=== PATIENT | female | born 1965 | race Caucasian/White ===

== ENCOUNTER 2019-10-31 11:27 | Inpatient (IN) | payer BC, OTHER ==
[~2019-10-31 11:27] MED LIST: Iopamidol 370 76% 100 ML VIAL ONE; Magnevist 469MG/ML 20 ML VIAL ONE
[2019-10-31 12:15] LABS: #Lymphocytes 1.5 thou/uL (1.20-3.40); #Monocytes 0.4 thou/uL (0.11-0.59); %Basophils 0.1 % (0.0-1.0); %Eosinophils 0.3 % (0.0-10.0); %Lymphocytes 12.8 % (21.0-51.0); %Monocytes 3.6 % (0.0-10.0); %Neutrophils 83.2 % (42.0-75.0); Hemoglobin 13.3 g/dL (12.0-16.0); Mean Corpuscular HGB CONC 32.8 g/dL (32.0-36.0); Mean Corpuscular Hemoglobin 34.6 pg (27.0-31.0); Mean Platelet Volume 9.4 fL (7.4-10.4); Platelet Count 216 thou/uL (130-400); RBC Distribution Width 14.3 % (11.5-14.5); Red Blood Cell (RBC) Count 3.83 mill/uL (4.20-5.40)
[2019-10-31 12:20] LABS: PTT 26.7 sec (22.9-36.1); Prothrombin Time 12.9 sec (12.0-14.7)
[2019-10-31 12:36] LABS: ALT (SGPT) 31 U/L (8-55); AST (SGOT) 32 U/L (5-34); Albumin 3.9 g/dL (3.5-5.0); Alkaline Phosphatase 79 U/L (40-110); Anion Gap 17 mmol/L (10-20); BUN (Urea Nitrogen) 18 mg/dL (9.8-20.1); Bilirubin, Total 0.4 mg/dL (0.2-1.2); Calc. Creatinine Clearance 0 mL/min (70-130); Calcium 9.4 mg/dL (7.8-10.44); Carbon Dioxide 21 mmol/L (22-29); Chloride 105 mmol/L (98-107); Estimated GFR-MDRD 75; Globulin 3.1 g/dL (2.4-3.5); Glucose 122 mg/dL (70-105); Potassium 3.2 mmol/L (3.5-5.1); Sodium 140 mmol/L (136-145)
--- NOTE | 2019-10-31 13:00 | CT ---
BRAIN CT WITHOUT IV CONTRAST: HISTORY: Stroke alert, right-sided facial droop, slurred speech, weakness. FINDINGS: Large low-attenuation circumscribed mass in the left posterior frontal lobe measuring 4 x 5 cm in siz e with some surrounding edema and mass effect. No evidence for acute hemorrhage. I favor this being a large neoplasm, possibly primary or secondary, with less likely possibility of an abscess. Follow up MRI with and without IV contrast is recommended. IMPRESSION: Large left frontal mass with mass effect without acute hemorrhage. Findings were discussed with Dr. English in the emergency room at 11:46 a.m. CODE CR POS: OFF
[2019-10-31] MEDS ORDERED: Dexamethasone 10 MG/ML VIAL ONE (13:27)
[2019-10-31] MEDS ORDERED: Senokot S 8.6-50 MG TAB PO PRN (14:24)
[2019-10-31] MEDS ORDERED: Guaifenesin DM 100-10/5 ML UDCUP PO PRN (14:24)
[2019-10-31] MEDS ORDERED: Bisacodyl 10 MG SUPP PR PRN (14:24)
[2019-10-31] MEDS ORDERED: Acetaminophen 325 MG TAB PO PRN (14:24)
[2019-10-31] MEDS ORDERED: Ondansetron PF 4 MG/2 ML Vial IVP PRN (14:24)
--- NOTE | 2019-10-31 14:55 | HP ---
REASON FOR ADMISSION: Right hemiparesis with left brain mass. HISTORY OF PRESENTING ILLNESS: The patient gives history of feeling weak on her right side for almost 2 weeks now. This has been progressively getting worse. She finally started to drag her feet. She has been falling multiple times with abrasion on her knees as well. Finally, this morning, the patient got completely paralyzed on her right side, specifically the right upper extremity, which concerned her and called EMS and was brought here. No complaints of fever, ear discharge, cough, or expectoration. No history of weight loss. No strong family history of any cancer as far as she can remember. She has had a COVID test done a month back just for screening purposes and was negative. She has a dog and no other pets. She has not traveled outside of [place] No history of exposure to TB. She works in [employer] with [employer]. The patient is a right-handed person. PAST MEDICAL AND SURGICAL HISTORY: Hypertension; hysterectomy; mammogram done 2 years back was negative; colonoscopy done, had some polyps; depression; obesity. CURRENT MEDICATIONS: The patient is on, 1. Omeprazole. 2. Verapamil. 3. Metoprolol. 4. Wellbutrin. 5. Sertraline. 6. Norvasc. ALLERGIES: ALLERGIC TO CODEINE AND KEFLEX. PERSONAL HISTORY: She smokes one pack a day. Does not abuse alcohol or drugs. She lives alone. The patient states she is single and has never been before. FAMILY HISTORY: Has one sister and one brother, both are healthy as far as she knows. Mother of pancreatitis and its complications. Father is still living. Code status is full. Power of employment law attorney is her close friend, whom she knows for the last 20 years, Ms. Claudia Grimm. REVIEW OF SYSTEMS: CONSTITUTIONAL: Negative for weight loss or gain, ability to conduct usual activities. SKIN: Negative for rash, itching. EYES: Negative for double vision, pain. ENT/MOUTH: Negative for nose bleeding, neck stiffness, pain, tenderness. CARDIOVASCULAR: Negative for palpitations, dyspnea on exertion, orthopnea. RESPIRATORY: Negative for shortness of breath, wheezing, cough, hemoptysis, fever or night sweats. GASTROINTESTINAL: Negative for poor appetite, abdominal pain, heartburn, nausea, vomiting, constipation, or diarrhea. GENITOURINARY: Negative for urgency, frequency, dysuria, nocturia. MUSCULOSKELETAL: Negative for pain, swelling. NEUROLOGIC/PSYCHIATRIC: Negative for anxiety, depression. ALLERGY/IMMUNOLOGIC: Negative for skin rash, bleeding tendency. PHYSICAL EXAMINATION: GENERAL: The patient is a 54-year-old female, who is currently not in any distress, but is paralyzed on the right side. VITAL SIGNS: Blood pressure 150/96, pulse 84 per minute, respiratory rate 20 per minute, temperature 98.2 degrees Fahrenheit, saturating 96% on room air. NECK: Supple. No elevated JVD. HEENT: Eyes; extraocular muscles intact. Pupils reacting to light. Oral cavity, mucous membranes are dry. No exudates or congestion. CARDIOVASCULAR: S1, S2 heard, regular rhythm. RESPIRATORY: Air entry 1+ bilateral. No rales or rhonchi. ABDOMEN: Soft. Bowel sounds heard. No tenderness, rigidity, or guarding. EXTREMITIES: No peripheral edema or calf tenderness. VASCULAR: Peripheral pulses 1+ bilateral. No ischemic ulcers or gangrene. CENTRAL NERVOUS SYSTEM: Cranial nerves, the patient has right-sided seventh nerve palsy. No other cranial nerve deficits are clinically apparent. Motor system, strength, right upper extremity is 0/5, right lower extremity is 3/5. Left upper and lower extremity strength is 5/5. Babinski is upgoing in the right. Gait is not tested. PSYCHIATRIC: The patient's mood is euthymic. No hallucinations or delusions. LABORATORY DATA AND DIAGNOSTIC DATA: CT brain without contrast shows large left frontal lobe mass with mass effect measuring 4 x 5 cm in size with surrounding edema. No acute hemorrhage was seen. MRI with and without contrast, official result is pending. White count of 12, H and H are 13 and 40, platelet count is 216. PT/INR within normal limits. Serum potassium 3.2, serum bicarb 21, BUN 18, creatinine 0.8, serum glucose 122. Albumin is 3.9. Liver enzymes within normal limits. EKG done shows normal sinus rhythm at 86 beats per minute. CLINICAL IMPRESSION AND PLAN: The patient will be admitted to stroke unit for large left frontal lobe mass with right hemiparesis with right upper extremity strength of 0/5 and right lower extremity strength of around 3/5. MRI with and without contrast, official results are pending. We will obtain a CT chest, abdomen and pelvis with contrast to see for any primary malignancy with possible metastasis to brain. She has been started on dexamethasone 4 mg IV q.6 hourly and will continue the same. She will be on Protonix 40 mg q[address] Armstrong has been consulted from ER, and we will follow up his recommendations. We will continue on Norvasc at 10 mg, Lopressor at 25 mg twice daily. We will have neuro checks q.4 hourly. We will optimize her medically for possible surgery. A COVID-19 screening PCR, echo with 2D Doppler for LV function and HbA1c as well. We will continue to closely monitor her on stroke unit. Job ID: [id number] [facility]
--- NOTE | 2019-10-31 16:26 | MRI ---
EXAM: BRAIN MRI WITH AND WITHOUT IV CONTRAST: 10/31/19 HISTORY: Let sided brain mass. Right sided facial droop and slurred speech with worsening symptoms. COMPARISON: Brain CT without contrast, 10/31/19. FINDINGS: Large 4 x 5.2 cm diameter centrally T1 hypointense, T2 hyperintense mass with some peripheral enhance ment including a focal area of nodular enhancement laterally measuring 1.8 x 2.9 cm in size. There ar e numerous other masses noted intracranially including a 0.8 x 1.7 cm mass posteriorly in a left para sagittal region adjacent to the posterior corpus callosum. There are multiple other smaller masses bi laterally including the posterior fossa and mid brain. IMPRESSION: Evidence for extensive brain metastasis with the largest mass in the left frontal lobe as above. Nume jacobo other smaller enhancing metastases throughout the brain including the posterior fossa. No evidence for acute hemorrhage. POS: OFF
[2019-10-31] MEDS: Sodium Chloride 0.9% 1,000 ML IV SCH (16:44)
[2019-10-31 17:30] VITALS: BMI 33.7
--- NOTE | 2019-10-31 18:45 | CT ---
CT Chest Abd Pelvis W Con History: Brain metastatic disease. Evaluate for primary cancer Comparison: None. Findings: Spiculated mass superior segment right lower lobe with some tethering of the adjacent major fissure. Mass measures 1.8 cm in greatest dimension. No other lung mass is present. Thyroid is unremarkable. Abnormal right paratracheal lymph node measures 13 mm short axis axial image 19. Abnormal right paraesophageal lymph node axial image 10 measures 11 mm short axis. No supraclavicular adenopathy. No left hilar lymph node is appreciated. Small AP window lymph nodes are present. There is a right adrenal mass measuring 3.9 cm axial image 58. No left adrenal mass. Cyst within hepa tic segment 2, 8, 5 and smaller hypodensities measuring less than 5 mm within segments 5 and 6. No definite hepatic metastatic disease. Spleen is normal. No renal mass. Pancreas is unremarkable. No retroperitoneal periaortic adenopathy. Sternum and manubrium are intact. No acute thoracic or lumbar spine fracture. No displaced rib fractu re. No dilated loops of large or small bowel. No abnormal colonic mass is appreciated. The appendix is no rmal. Impression: 1. Primary malignant process is felt to be the spiculated mass superior segment right lower lobe patricia uring 1.8 cm. 2. Metastatic mediastinal adenopathy as well as right adrenal mass.
[2019-10-31] MEDS: Dexamethasone 4 mg/ml Vial SLOW IVP SCH (19:29)
[2019-10-31] MEDS: buPROPion HCl 100 MG TAB PO SCH (20:40)
[2019-10-31] MEDS: Metoprolol Tartrate 25 MG TAB PO SCH (20:41)
[2019-10-31] MEDS: Pantoprazole 40 MG VIAL IVP SCH (20:41)
--- NOTE | 2019-10-31 23:59 | CON ---
DATE OF CONSULTATION: 10/31/2019 HISTORY OF PRESENT ILLNESS: The patient is a 54-year-old female with past medical history of hypertension and GERD, who presented to the ER today for progressive right-sided weakness. The patient reports over the last 2 weeks, she has had progression of right upper and right lower extremity weakness. She was evaluated with a noncontrast CT head on arrival to the ER and found to have a new large left-sided brain mass with some surrounding vasogenic edema. She was given a dose of Decadron there in the emergency department and admitted to the medical team for additional evaluation. She has also had an MRI inpatient with and without contrast of the brain, which is notable for large left frontal peripherally enhancing mass, which appears possibly cystic in nature and also multiple scattered enhancing lesions throughout consistent with metastatic disease. The patient does not have a history of cancer, but she is a long-term smoker, approximately 1 pack per [address] A [address] chest, abdomen, and pelvis has been ordered, but this test has not yet been done. PAST MEDICAL HISTORY: Hypertension, GERD, depression. PAST SURGICAL HISTORY: Hysterectomy, colonoscopy. CURRENT MEDICATIONS: 1. Omeprazole. 2. Verapamil. 3. Metoprolol. 4. Wellbutrin. 5. Sertraline. 6. Norvasc. ALLERGIES: THE PATIENT IS ALLERGIC TO CODEINE AND KEFLEX. SOCIAL HISTORY: She lives at home. She is currently on a long-term assignment with [employer], but normally resides in [place]. She smokes approximately 1 pack per day. She does not drink or use any drugs. FAMILY HISTORY: She has a sister and a brother who are otherwise healthy. Mother is passed of pancreatitis. REVIEW OF SYSTEMS: Per HPI. PHYSICAL EXAMINATION: CONSTITUTIONAL: Awake, alert, no acute distress. VITAL SIGNS: Stable, afebrile. HEENT: Head: Normocephalic and atraumatic. She is noted to have a right-sided facial droop. Eyes: PERRLA. Extraocular movements intact. ENT: [place], intact, and moist. She has some difficulty with word finding and occasional stuttering of her speech. NECK: Nontender. Free active range of motion. No meningismus or nuchal rigidity. CARDIAC: Regular rate and rhythm. PULMONARY: Symmetric chest expansion. No evidence of dyspnea. MUSCULOSKELETAL: On the left side, she has free active range of motion of the upper and lower extremities, no focal motor weakness. On the right, she has complete hemiparesis of the right upper extremity. The right lower extremity is diffusely weak, approximately 3/5. Sensation is intact in both the upper and lower extremities and symmetric to light touch. NEUROLOGIC: She is A and O x4. She has some difficulty with word finding, right-sided facial droop, and right-sided weakness as noted in the exam above, particularly hemiparesis of the right upper extremity. ASSESSMENT AND PLAN: This 54-year-old female with gradually progressive right-sided hemiparesis, who was found to have a new left-sided brain mass and multiple scattered enhancing lesions consistent with likely metastatic disease. We will plan to get a CT chest, abdomen, and pelvis to identify a source. We will also continue her Decadron treatment for q.6 with an H2 cheryle for GI protection. I have discussed this plan with Dr. Armstrong, who will also see the patient. We will follow these results closely and further determine course of action. Job ID: [id number]
[2019-11-01] MEDS: Dexamethasone 4 mg/ml Vial SLOW IVP SCH ×5 (00:10→23:42)
[2019-11-01] MEDS: Sodium Chloride 0.9% 1,000 ML IV SCH ×2 (04:01→17:27)
[2019-11-01 04:55] LABS: #Lymphocytes 0.8 thou/uL (1.20-3.40); #Monocytes 0.2 thou/uL (0.11-0.59); %Basophils 0.2 % (0.0-1.0); %Eosinophils 0.5 % (0.0-10.0); %Lymphocytes 10.8 % (21.0-51.0); %Monocytes 2.1 % (0.0-10.0); %Neutrophils 86.4 % (42.0-75.0); Hemoglobin 11.9 g/dL (12.0-16.0); Mean Corpuscular Hemoglobin 34.1 pg (27.0-31.0); Mean Platelet Volume 9.5 fL (7.4-10.4); Platelet Count 189 thou/uL (130-400); Red Blood Cell (RBC) Count 3.48 mill/uL (4.20-5.40); White Blood Cell (WBC) Count 6.9 thou/uL (4.8-10.8)
[2019-11-01 05:02] LABS: Hemoglobin A1c 5.1 % (4.0-6.0)
[2019-11-01 05:14] LABS: Anion Gap 15 mmol/L (10-20); BUN (Urea Nitrogen) 11 mg/dL (9.8-20.1); Calc. Creatinine Clearance 125 mL/min (70-130); Calcium 9.1 mg/dL (7.8-10.44); Carbon Dioxide 21 mmol/L (22-29); Chloride 106 mmol/L (98-107); Estimated GFR-MDRD 84; Glucose 138 mg/dL (70-105); Potassium 3.6 mmol/L (3.5-5.1); Sodium 138 mmol/L (136-145)
[2019-11-01] MEDS: Pantoprazole 40 MG VIAL IVP SCH ×2 (08:34→20:49)
[2019-11-01] MEDS: Metoprolol Tartrate 25 MG TAB PO SCH ×2 (08:34→20:50)
[2019-11-01] MEDS ORDERED: Amlodipine 10 MG TAB PO SCH (09:00)
[2019-11-01] MEDS ORDERED: Enoxaparin Sodium 40 MG/0.4 ML SYRINGE SC SCH (09:00)
[2019-11-01 12:23] LABS: SARS-CoV-2 MS2 Positive; SARS-CoV-2 N Gene Negative; SARS-CoV-2 S Gene Negative; SARS-CoV-2 by NAA Not Detected (NotDetected); SARS-CoV-2 orf1ab Negative
[2019-11-01] MEDS: buPROPion HCl 100 MG TAB PO SCH (14:04)
--- NOTE | 2019-11-01 14:42 | PDOC.HOSPP ---
- Subjective Encounter Date: 11/01/19 Encounter Time: 10:15 Subjective: no new weakness still cant lift her right UE, moves right lower but weaker than left lower no trouble swallowing or seeing - Objective Vital Signs & Weight: Vital Signs (12 hours) Temp Pulse Pulse Pulse Resp BP BP 11/01/19 12:22 85 82 140/61 163/70 H 11/01/19 11:58 98.0 F 87 19 11/01/19 08:34 11/01/19 07:17 97.9 F 86 16 11/01/19 04:00 98.7 F 87 18 BP Pulse Ox 11/01/19 12:22 11/01/19 11:58 140/62 98 11/01/19 08:34 97 11/01/19 07:17 132/62 97 11/01/19 04:00 136/63 94 L Weight Weight 196 lb 3.2 oz I&O: 10/31/19 11/01/19 11/02/19 06:59 06:59 06:59 Intake Total 1690 600 Output Total 1000 Balance 690 600 Result Diagrams: 11/01/19 04:39 11/01/19 04:39 Hospitalist ROS - Medication Medications: Active Medications Generic Name Dose Route Start Last Admin Trade Name Freq PRN Reason Stop Dose Admin Dexamethasone 4 mg 10/31/19 18:00 11/01/19 12:00 Dexamethasone 4 Mg/Ml Vial SLOW IVP 4 mg Q6HR DERRICK Administration Sodium Chloride 1,000 mls @ 75 mls/hr 10/31/19 14:30 11/01/19 04:01 Normal Saline 0.9% IV 1,000 mls .[id number] DERRICK Administration Metoprolol Tartrate 25 mg 10/31/19 21:00 11/01/19 08:34 Metoprolol Tartrate 25 Mg Tab PO 25 mg BID DERRICK Administration Pantoprazole Sodium 40 mg 10/31/19 21:00 11/01/19 08:34 Pantoprazole 40 Mg Vial IVP 40 mg Q12HR DERRICK Administration - Exam General Appearance: awake alert Eye: PERRL, anicteric sclera ENT: no oropharyngeal lesions, moist mucosa Neck: supple, no JVD Heart: RRR, no murmur Respiratory: no wheezes, no rales Gastrointestinal: soft, non-tender, non-distended, normal bowel sounds Extremities: no cyanosis, no edema Neurological: hemiplegia Neurological - other findings: right hemiparesis, right 7th nr palsy Psychiatric: A&O x 3 Hosp A/P (1) Left frontal lobe mass Code(s): G93.89 - OTHER SPECIFIED DISORDERS OF BRAIN Status: Acute (2) metastases Status: Acute (3) HTN (hypertension) Code(s): I10 - ESSENTIAL (PRIMARY) HYPERTENSION Status: Chronic Qualifiers: Hypertension type: essential hypertension Qualified Code(s): I10 - Essential (primary) hypertension (4) Obesity (BMI 30.0-34.9) Code(s): E66.9 - OBESITY, UNSPECIFIED Status: Chronic (5) Depression Code(s): F32.9 - MAJOR DEPRESSIVE DISORDER, SINGLE EPISODE, UNSPECIFIED Status: Chronic Qualifiers: Depression Type: major depressive disorder - Plan d/w , is going to OR in am for resection of large left frontal lobe mass likely right lung primary with right adrenal, brain and mediastinal mets right UE strength is 0/5, right Lower extre strength is 3/5, 7th nr palsy continue norvasc, welbutrin, sertraline, protonix, dexamethasone, lopressor hemostable
--- NOTE | 2019-11-01 16:49 | PRG ---
DATE OF SERVICE: 11/01/2019 The patient was seen and examined. I agree with Alea Weathers's evaluation on 10/31/2019. The patient is a 54-year-old woman in previously good health, who presented with two weeks of progressive right hemiparesis that became worse over the past day. On physical exam, she does have a dense right hemiparesis, although she is able to wiggle her toes. MR reveals a large left frontal mass, partially cystic with enhancing tissue at its margin. She has multiple other enhancing intracranial nodules. CT chest, abdomen, and pelvis reveals a spiculated lung lesion, thought to be a primary malignancy as well as metastases to the perihilar glands, mediastinal and adrenal. IMPRESSION AND PLAN: Metastatic malignancy. Given the large size and symptomatic nature of the left frontal lesion, I would recommend surgical removal for both treatment and diagnosis. I discussed the indication, risks, benefits, and alternatives of the craniotomy and tumor resection with the patient including an estimated 1% to 2% risk of mortality and a 10% risk of worsening neurologic deficit. She expressed understanding. All of her questions were answered and she wished to proceed. Job ID: [id number]
[2019-11-01] MEDS ORDERED: Amlodipine 5 MG TAB PO SCH (21:00)
[2019-11-02] MEDS: Metoprolol Tartrate 25 MG TAB PO SCH (05:39)
[2019-11-02] MEDS: Dexamethasone 4 mg/ml Vial SLOW IVP SCH ×3 (05:39→17:38)
[2019-11-02] MEDS: Sodium Chloride 0.9% 1,000 ML IV SCH ×2 (06:12→18:17)
[2019-11-02] MEDS: Bupropion 150 MG XL TAB PO SCH (09:12)
[2019-11-02] MEDS: Pantoprazole 40 MG VIAL IVP SCH (09:13)
--- NOTE | 2019-11-02 10:52 | PDOC.HOSPP ---
- Subjective Encounter Date: 11/02/19 Encounter Time: 10:15 Subjective: no new complaints feels rested, is going to OR this afternoon - Objective Vital Signs & Weight: Vital Signs (12 hours) Temp Pulse Resp BP Pulse Ox 11/02/19 07:40 98.0 F 81 16 175/77 H 96 11/02/19 03:41 98.5 F 87 19 179/91 H 95 11/02/19 00:52 97.9 F 81 15 176/87 H 98 Weight Weight 196 lb 3.2 oz I&O: 11/01/19 11/02/19 11/03/19 06:59 06:59 06:59 Intake Total 1690 3103 Output Total 1000 1450 Balance 690 1653 Result Diagrams: 11/01/19 04:39 11/01/19 04:39 Additional Labs: Accuchecks 11/01/19 22:30 POC Glucose 145 H Hospitalist ROS - Medication Medications: Active Medications Generic Name Dose Route Start Last Admin Trade Name Freq PRN Reason Stop Dose Admin Amlodipine Besylate 5 mg 11/01/19 21:00 11/01/19 20:50 Amlodipine 5 Mg Tab PO 5 mg QPM DERRICK Administration Bupropion HCl 300 mg 11/02/19 09:00 11/02/19 09:12 Bupropion 150 Mg Xl Tab PO 300 mg DAILY DERRICK Administration Dexamethasone 4 mg 10/31/19 18:00 11/02/19 05:39 Dexamethasone 4 Mg/Ml Vial SLOW IVP 4 mg Q6HR DERRICK Administration Sodium Chloride 1,000 mls @ 75 mls/hr 10/31/19 14:30 11/02/19 06:12 Normal Saline 0.9% IV 1,000 mls .[id number] DERRICK Administration Metoprolol Tartrate 25 mg 10/31/19 21:00 11/02/19 05:39 Metoprolol Tartrate 25 Mg Tab PO 25 mg BID DERRICK Administration Pantoprazole Sodium 40 mg 10/31/19 21:00 11/02/19 09:13 Pantoprazole 40 Mg Vial IVP 40 mg Q12HR DERRICK Administration Sertraline HCl 200 mg 11/01/19 21:00 11/01/19 20:50 Sertraline Hcl 100 Mg Tab PO 200 mg HS DERRICK Administration - Exam General Appearance: awake alert Eye: PERRL, anicteric sclera ENT: no oropharyngeal lesions, moist mucosa Neck: supple, no JVD Heart: RRR, no murmur Respiratory: no wheezes, no rales Gastrointestinal: soft, non-distended, normal bowel sounds Extremities: no cyanosis, no edema Neurological: hemiplegia Psychiatric: A&O x 3 Hosp A/P (1) Left frontal lobe mass Code(s): G93.89 - OTHER SPECIFIED DISORDERS OF BRAIN Status: Acute (2) metastases Status: Acute (3) HTN (hypertension) Code(s): I10 - ESSENTIAL (PRIMARY) HYPERTENSION Status: Chronic Qualifiers: Hypertension type: essential hypertension Qualified Code(s): I10 - Essential (primary) hypertension (4) Obesity (BMI 30.0-34.9) Code(s): E66.9 - OBESITY, UNSPECIFIED Status: Chronic (5) Depression Code(s): F32.9 - MAJOR DEPRESSIVE DISORDER, SINGLE EPISODE, UNSPECIFIED Status: Chronic Qualifiers: Depression Type: major depressive disorder - Plan is going to OR this afternoon for resection of large left frontal lobe mass likely right lung primary with right adrenal, brain and mediastinal mets right UE strength is 0/5, right Lower extre strength is 3/5, 7th nr palsy continue norvasc, welbutrin, sertraline, protonix, dexamethasone, lopressor hemostable
[2019-11-02] MEDS ORDERED: Clindamycin/D5W 900 mg/50 ml Premix Bag ONE (11:00)
[2019-11-02] MEDS ORDERED: Levofloxacin 500 mg/D5W 100 ml Premix Bag ONE (11:00)
[2019-11-02] MEDS ORDERED: Clindamycin/D5W 900 MG in Premix Bag 1 BAG IVPB SCH (11:30)
[2019-11-02] MEDS ORDERED: Fentanyl 100 MCG/2 ML VIAL ONE ×4 (11:50→15:38)
[2019-11-02] MEDS ORDERED: Bacitracin Zinc Ointment 30 gm TUBE ONE (11:54)
[2019-11-02] MEDS ORDERED: Ondansetron PF 4 MG/2 ML Vial ONE (12:33)
[2019-11-02] MEDS ORDERED: Ketorolac Tromethamine 30 MG/ML VIAL ONE (12:33)
[2019-11-02] MEDS ORDERED: Dexamethasone 20 MG/5 ML VIAL ONE (12:33)
[2019-11-02] MEDS ORDERED: Rocuronium Bromide 50 MG/5 ML VIAL ONE (12:33)
[2019-11-02] MEDS ORDERED: PROPOFOL 200 MG/20 ML VIAL ONE (12:33)
[2019-11-02] MEDS ORDERED: Lidocaine 1% PF 5 ML VIAL ONE ×3 (12:33)
[2019-11-02] MEDS ORDERED: SUGAMMADEX SODIUM 200 MG/2 ML VIAL ONE (14:03)
[2019-11-02] MEDS ORDERED: Labetalol HCl 100 MG/20 ML VIAL ONE (14:57)
[2019-11-02] MEDS ORDERED: Promethazine HCl 6.25 MG/5 ML Syrup PO PRN (15:19)
[2019-11-02] MEDS ORDERED: Morphine 2 MG/ML VIAL SLOW IVP PRN (15:26)
[2019-11-02] MEDS ORDERED: Ondansetron HCl/PF 4 MG/2 ML Vial IVP PRN (15:31)
[2019-11-02] MEDS ORDERED: Promethazine HCl 25 MG/ML VIAL SLOW IVP PRN (15:31)
[2019-11-02] MEDS ORDERED: Promethazine HCl 25 MG/ML VIAL IM PRN (15:31)
[2019-11-02] MEDS ORDERED: HYDROmorphone 2 MG/ML VIAL SLOW IVP PRN (15:31)
--- NOTE | 2019-11-02 15:50 | EKG ---
Test Reason : Blood Pressure : / mmHG Vent. Rate : 081 BPM Atrial Rate : 081 BPM P-R Int : 144 ms QRS Dur : 082 ms QT Int : 414 ms P-R-T Axes : 055 025 030 degrees QTc Int : 480 ms Normal sinus rhythm Possible Left atrial enlargement Prolonged QT Abnormal ECG When compared with ECG of 31-OCT-2019 11:58, (Unconfirmed) No significant change was found Confirmed by MANPREET LARES M.D. ([id number]) on 11/02/2019 3:50:23 PM Referred By: JORDEN Confirmed By:MANPREET LARES M.D.
[2019-11-02] MEDS ORDERED: Labetalol HCl 100 MG/20 ML VIAL SLOW IVP PRN ×2 (16:55→16:56)
[2019-11-02] MEDS: HYDROcodone/Acetaminophen 5/325 mg Tablet PO PRN ×2 (17:36→21:50)
[2019-11-02] MEDS: cloNIDine 0.1 MG TAB PO PRN (18:31)
--- NOTE | 2019-11-02 18:38 | OP ---
DATE OF PROCEDURE: 11/02/2019 LONE LEAD LINEMAN: Jasiel. PROCEDURE PERFORMED: Stereotactic intracranial navigation left craniotomy for tumor resection. DESCRIPTION OF PROCEDURE: The patient was brought to the operating room intubated. She was positioned supine with the head turned to the right, exposing the left frontotemporal region. She was fixed in a Johnny head batcher and the stereotactic navigation system was brought into the field and registered to the patient's head to plan the craniotomy. We performed a standard horseshoe-shaped incision, reflected inferiorly and a standard square craniotomy. The dura was reflected in cruciate fashion. Using the intracranial navigation, we incised the cortex and immediately encountered dense tumor fluid that was decompressed. This decompressed the brain substantially. We identified the superficial region of fleshy tumor and circumferentially resected this. It was quite soft and much of it was removed by aspiration through the sucker, but a fair bit of tumor material was sent for pathologic examination. A complete resection of this region of tumor was achieved and inspection of the tumor cavity did not reveal any definitive fleshy tumor, and therefore, the lui of the cystic region were not pursued. Next, hemostasis was achieved and the wound was extensively irrigated. DuraGen was used to reapproximate the dura and the skull was replaced with titanium micro plates and screws. The scalp was then closed in anatomic layers. Job ID: [id number]
[2019-11-02] MEDS: Clindamycin/D5W 900 MG in Premix Bag 1 BAG IVPB SCH (20:20)
[2019-11-02] MEDS: Metoprolol Tartrate 50 MG TAB PO SCH (20:20)
[2019-11-03] MEDS: Dexamethasone 4 mg/ml Vial SLOW IVP SCH ×5 (00:04→20:29)
[2019-11-03] MEDS: HYDROcodone/Acetaminophen 5/325 mg Tablet PO PRN ×4 (02:10→20:30)
[2019-11-03] MEDS: Clindamycin/D5W 900 MG in Premix Bag 1 BAG IVPB SCH (04:19)
[2019-11-03] MEDS: cloNIDine 0.1 MG TAB PO PRN (05:35)
[2019-11-03] MEDS: Bupropion 150 MG XL TAB PO SCH (08:03)
[2019-11-03] MEDS: Metoprolol Tartrate 50 MG TAB PO SCH ×2 (08:03→20:30)
[2019-11-03] MEDS: Amlodipine 10 MG TAB PO SCH (08:03)
[2019-11-03] MEDS: Sodium Chloride 0.9% 1,000 ML IV SCH (09:31)
--- NOTE | 2019-11-03 10:02 | PRG ---
DATE OF SERVICE: 11/03/2019 SUBJECTIVE: The patient is postoperative day #1, status post a left-sided craniotomy for left frontal tumor. Following the surgery, she was transitioned to the ICU where her pain has been well-controlled with p.o. medication, she is tolerating a regular diet. Her strength has improved significantly in the right upper extremity and she is now able to lift it up off the bed. OBJECTIVE: GENERAL: On exam this morning, the patient is awake, alert, oriented x3. HEENT: Her pupils are equal and reactive. EXTREMITIES: Her incision is clean, dry, and intact. She has some weakness in the right upper extremity 3/5. She has good strength in the remainder of the extremities, 5/5 in the left and 4+/5 in the right lower extremity. PLAN: The patient is doing quite well postoperatively. We will plan to transition her back to the stroke unit and go ahead and remove her Koch. She was tolerating p.o. well, so I will stop her IV fluids. The patient should continue PT/OT, and I have placed a Rehab Screen. She will benefit from inpatient rehabilitation. She will need further consultations with Oncology teams and these consults have been placed. We will follow along closely. Job ID: [id number] [facility]
--- NOTE | 2019-11-03 12:07 | PDOC.HOSPP ---
- Subjective Encounter Date: 11/03/19 Encounter Time: 09:00 Subjective: sitting in chair, feels better is able to lift her right upper extr a bit, moves fingers says her speech is better, facial droop is almost gone - Objective Vital Signs & Weight: Vital Signs (12 hours) Temp Pulse Pulse BP BP Pulse Ox 11/03/19 10:05 88 156/54 H 11/03/19 08:03 76 155/78 H 11/03/19 08:00 97.9 F 98 11/03/19 05:35 168/63 H Weight Admit Weight 196 lb 3.2 oz Weight 196 lb 3.2 oz Most Recent Monitor Data Heart Rate from ECG 86 NIBP 156/54 NIBP BP-Mean 88 Respiration from ECG 16 SpO2 97 I&O: 11/02/19 11/03/19 11/04/19 06:59 06:59 06:59 Intake Total 3103 2046 555 Output Total 1450 1190 420 Balance 1653 856 135 Result Diagrams: 11/01/19 04:39 11/01/19 04:39 Hospitalist ROS - Medication Medications: Active Medications Generic Name Dose Route Start Last Admin Trade Name Freq PRN Reason Stop Dose Admin Acetaminophen 650 mg 10/31/19 14:24 11/02/19 20:21 Acetaminophen 325 Mg Tab PO 650 mg Q4H PRN Administration Headache/Fever/Mild Pain (1-3) Hydrocodone Bitart/Acetaminophen 1 tab 11/02/19 15:19 11/03/19 08:30 Hydrocodone/Acetaminophen 5/325 Mg Tablet PO 1 tab Q4H PRN Administration Mild-Moderate Pain (1-5) Amlodipine Besylate 10 mg 11/03/19 09:00 11/03/19 08:03 Amlodipine 10 Mg Tab PO 10 mg DAILY DERRICK Administration Bupropion HCl 300 mg 11/02/19 09:00 11/03/19 08:03 Bupropion 150 Mg Xl Tab PO 300 mg DAILY DERRICK Administration Clonidine 0.1 mg 11/02/19 16:55 11/03/19 05:35 Clonidine 0.1 Mg Tab PO 0.1 mg Q4H PRN Administration sbp>150 Dexamethasone 4 mg 11/03/19 09:00 11/03/19 08:04 Dexamethasone 4 Mg/Ml Vial SLOW IVP 11/03/19 23:59 4 mg TID DERRICK Administration Metoprolol Tartrate 50 mg 11/02/19 21:00 11/03/19 08:03 Metoprolol Tartrate 50 Mg Tab PO 50 mg BID DERRICK Administration Pantoprazole Sodium 40 mg 11/02/19 21:00 11/03/19 08:03 Pantoprazole 40 Mg Tab PO 40 mg Q12HR DERRICK Administration Sertraline HCl 200 mg 11/01/19 21:00 11/02/19 20:20 Sertraline Hcl 100 Mg Tab PO 200 mg HS DERRICK Administration - Exam General Appearance: awake alert Eye: PERRL, anicteric sclera ENT: no oropharyngeal lesions, moist mucosa Neck: supple, no JVD Heart: RRR, no murmur Respiratory: no wheezes, no rales Gastrointestinal: soft, non-tender, non-distended, normal bowel sounds Extremities: no cyanosis, no edema Neurological - other findings: right hemiparesis is better this am Hosp A/P (1) Left frontal lobe mass Code(s): G93.89 - OTHER SPECIFIED DISORDERS OF BRAIN Status: Acute (2) metastases Status: Acute (3) HTN (hypertension) Code(s): I10 - ESSENTIAL (PRIMARY) HYPERTENSION Status: Chronic Qualifiers: Hypertension type: essential hypertension Qualified Code(s): I10 - Essential (primary) hypertension (4) Obesity (BMI 30.0-34.9) Code(s): E66.9 - OBESITY, UNSPECIFIED Status: Chronic (5) Depression Code(s): F32.9 - MAJOR DEPRESSIVE DISORDER, SINGLE EPISODE, UNSPECIFIED Status: Chronic Qualifiers: Depression Type: major depressive disorder - Plan s/p resection of large left frontal lobe mass 11/01 likely right lung primary with right adrenal, brain and mediastinal mets right UE strength was 0/5 post op 2-3/5, right Lower extre strength is 3/5, 7th nr palsy is resolving continue norvasc, welbutrin, sertraline, protonix, dexamethasone, lopressor hemostable PT/OT and rehab eval
--- NOTE | 2019-11-03 13:02 | CON ---
DATE OF CONSULTATION: HISTORY OF PRESENT ILLNESS: Kellen Acevedo is a 54-year-old obese female, weighs 90 kg. She presented to the hospital on October 30 with an acute onset of right-sided weakness. CT of head showed a large mass in the brain. Since then she has been seen by Neurosurgery, underwent surgical resection, stereotactic yesterday. Pathology is pending. The MRI showed extensive brain metastasis with the largest mass in the left frontal lobe as noted. She now was started on Decadron. On further questioning, she has smoked most of her life, though she says she has cut back smoking to 5 or 6 cigarettes a day. No prior history of TB or asthma, but history of frequent bronchitis. PAST MEDICAL HISTORY: Pertinent for; 1. High cholesterol. 2. Reflux. 3. Hypertension. 4. Depression. PREVIOUS SURGERIES: Hysterectomy. HOME MEDICATIONS: Include; 1. Verapamil 360. 2. Amlodipine 5. 3. Omeprazole. 4. Pravastatin 80. 5. Metoprolol 50 twice a day. 6. Ibuprofen 300. 7. Zoloft 200. ALLERGIES: KEFLEX, CODEINE, PENICILLIN. SOCIAL AND FAMILY HISTORY: Unremarkable. REVIEW OF SYSTEMS: Negative. PHYSICAL EXAMINATION: VITAL SIGNS: Postop in the ICU, temperature is 97, pulse 76, blood pressure 150/78, respiratory rate . GENERAL: She is awake, alert, responsive. She got weakness in the right side, though she is able to move the left leg. CHEST: No wheezing. No crackles. CARDIAC: Normal S1, S2. No gallops. ABDOMEN: No masses. DIAGNOSTIC DATA: Chest x-ray was not done, but CT chest showed a mass in the right lower lung with adenopathy. CT abdomen was otherwise unremarkable. She had lab done, which shows white count is 6, H and H of 11/37, platelet count is normal. Chemistry profile shows lytes are normal with BUN and creatinine are normal. ASSESSMENT: Metastatic bronchogenic carcinoma, hypertension, right-sided weakness, high cholesterol, depression, tobacco abuse. PLAN: Await path, that should give us a diagnosis. Primary Critical Care will follow in the ICU. No further intervention from Pulmonary is required at this time. Job ID: [id number]
--- NOTE | 2019-11-03 15:39 | CON ---
DATE OF CONSULTATION: 11/03/2019 REASON FOR CONSULTATION: Ms. Acevedo is a 54-year-old female, who has likely been diagnosed with brain metastasis from a stage IVB, T1b N2 M1c lung carcinoma. HISTORY OF PRESENT ILLNESS: Ms. Acevedo states that she was doing well until about 2 weeks ago. She then began experiencing some right hand weakness, which worsened. She then started having some right leg weakness and some falls. She then had difficulty moving her right side at all, and she was subsequently brought to the emergency room. A CT scan of the chest suggested a mass in the brain. This led to an MRI of the brain as well as CT scan of the chest, abdomen, and pelvis. The MRI of the brain showed numerous lesions in the brain consistent with metastatic disease. The largest lesion measured slightly more than 5.2 cm and was causing mass effect in the left parietal area of the brain. CT of the chest showed a 1.8-cm right lower lobe lung mass, mediastinal adenopathy, and a right adrenal mass. This is all concerning for metastatic lung cancer. Yesterday, she was taken to the operating room, where she underwent a craniotomy and resection of the left parietal tumor. A gross total resection of that tumor was felt to have been accomplished. Pathology from that is currently pending. I have been asked to see her to discuss her options for treatment. She does report that today she has regained some of her movement on her right side. She still has right arm and hand weakness, but her right leg is much stronger. She has no headaches or nausea or vomiting prior to her diagnosis, but has been having some headaches and jaw pain since her operation. She has no shortness of breath or cough or other areas of pain. She has lost 14 pounds recently, which has been unintentional. She voices no other complaints. PAST MEDICAL HISTORY: 1. Hypertension. 2. Hypercholesterolemia. 3. History of depression. 4. Status post hysterectomy and bilateral salpingo-oophorectomy. 5. Status post cholecystectomy. 6. GE reflux disease. MEDICATIONS: 1. Wellbutrin. 2. Clonidine p.r.n. 3. Dexamethasone. 4. [place] p.r.n. 5. Levaquin. 6. Metoprolol. 7. Zofran. 8. Protonix. 9. Zoloft. 10. Senokot. ALLERGIES: CODEINE, PENICILLIN, AND OXYCONTIN, WHICH ALL CAUSED A RASH AND ANAPHYLAXIS. ALLERGIES: SHE ALSO REPORTS AN ALLERGY TO KEFLEX, WHICH CAUSED A RASH. SOCIAL HISTORY: She was smoking one pack per day, although she had been decreasing this recently and was down to 4 cigarettes per day. She is trying to quit. Smoking cessation counseling was provided. She was strongly encouraged to stop smoking. She drinks approximately 2 alcoholic beverages per week. She is single and lives here in town by herself. She is from [place], but has been working here at [employer]. She does, prior to [facility], travel back to [place] every several months. FAMILY HISTORY: Her paternal grandmother had ovarian cancer. Her mother at age 51 from pancreatitis. Her father is still living at age 74. There is no other family history of malignancy. REVIEW OF SYSTEMS: Twelve-system review of systems is otherwise negative. PHYSICAL EXAMINATION: VITAL SIGNS: Height 5 feet and 4 inches, weight 196 pounds. Blood pressure is 156/54, pulse is 86, respirations 16, temperature is 97.9, and O2 saturation is 97%. CONSTITUTIONAL: She is alert and oriented. Karnofsky performance status is 70%, but expected to improve. She is well developed and well nourished. EYES: Pupils equal, round, and reactive to light. Extraocular movements are intact. ENT: Oral cavity and oropharynx are normal without lesion or erythema. Palate elevates symmetrically. Gingiva is intact. NECK: Supple without preauricular, submandibular, cervical, or supraclavicular adenopathy. No thyromegaly. Larynx midline. LUNGS: Breathing nonlabored. Clear to auscultation anteriorly and posteriorly. Clear to percussion posteriorly. HEART: Regular rate and rhythm without murmur. No lower extremity edema. BACK: No tenderness on fist percussion of her spine. LYMPHATIC: No axillary or inguinal adenopathy. ABDOMEN: Obese, soft, nontender, and nondistended without mass. Bowel sounds present. SKIN: Without rash or purpura. NEUROLOGIC: Cranial nerves II through XII are grossly intact. Motor strength is 5/5 in both upper and lower extremities on the left side. In the right upper extremity, her biceps and licensed plumber are 3/5. She is stronger in the right lower extremity where her muscles are rated at 4/5. Reflexes are brisk, but symmetrical. Gait was not tested. LABORATORY DATA: Pathology is currently pending. CBC revealed a white blood cell count of 6900 with hemoglobin of 11.9, hematocrit of 37.0, and platelet count of 189,000. Chemistry group showed normal electrolytes. Liver function tests were normal. RADIOLOGIC DATA: CT scan of the chest, abdomen, and pelvis and MRI of the brain were all personally reviewed. Again, she has numerous brain metastasis with the largest brain metastasis being more than 5 cm in the left parietal area of the brain. She has multiple other small contrast-enhancing lesions consistent with metastatic disease. She also has a lesion in the mid brain. CT of the chest shows a 1.8 cm right lower lobe lung mass with some mediastinal adenopathy and a right adrenal mass that measures 3.9 cm. ASSESSMENT: Ms. Acevedo is a 54-year-old female with likely brain metastasis from a clinical stage IVB T1b N2 M1c lung carcinoma. Pathology is currently pending. She is day 1 postop with beginning improvement in her right-sided strength. PLAN: I had a long discussion with Ms. Patterson regarding her diagnosis, prognosis, prognostic factors, and treatment options. I explained to her that she likely has stage IV disease, which will likely not be curable. The prognosis would depend on the pathology type and perhaps some of the special staining. Most likely this is going to be a non-small cell carcinoma of the lung. Most likely her option for treatment after she has recovered from her surgery will be whole-brain radiation therapy. Given her numerous other lesions in the size of the resection cavity, she is not going to be a candidate for radiosurgery. The logistics of radiation as well as the benefits and risk of treatment were discussed. The simulation and daily treatment procedure were discussed. Side effects would include, but not be limited to, skin reaction, fatigue, lower blood counts, headache, nausea, vomiting, small risk of radiation necrosis, and possible cognitive decline from the radiation. She will be treated with Namenda while she is on the radiation as this has been shown to reduce cognitive deficits from the treatment. Time was taken to answer all of her questions regarding her situation and possible treatment options at this point. My plan is to have her to return to see me in approximately 2 weeks as an outpatient, so that we will have the final pathology and we can make plans towards proceeding with the radiation. I explained that she will need to heal from her craniotomy before we can begin the radiation that typically this is 3 to 4 weeks. She is agreeable with that plan. Thank you for this interesting consultation. Job ID: [id number] TRACI
--- NOTE | 2019-11-03 15:49 | PRG ---
DATE OF SERVICE: 11/03/2019 SUBJECTIVE: Mrs. Acevedo is alert and appropriate on postoperative day one. There is marked improvement in strength in the right upper extremity, which is somewhat of a surprise. Pathology is pending. IMPRESSION AND PLAN: Transfer to floor and increase activity and diet. She will need inpatient rehab. We will await final pathology. Job ID: [id number]
--- NOTE | 2019-11-03 20:00 | CON ---
DATE OF CONSULTATION: REASON FOR CONSULTATION: Lung lesion with brain mass. HISTORY OF PRESENT ILLNESS: Ms. Acevedo is a pleasant 54-year-old female, who over the past 3 weeks has been having right hand paralysis, left foot drag, which progressively worsened on Saturday, she presented to the emergency room for evaluation. She underwent a MRI of the brain, which showed extensive brain metastasis with the largest mass in the left frontal lobe measuring 4 x 5.2 cm. There was another area laterally measuring 1.8 x 2.9 cm. There were numerous other masses noted intracranially including a 0.8 x 1.7 cm mass posterior to the left parasagittal region. There was no evidence of acute hemorrhage. She underwent a chest, abdomen, and pelvis CT for further evaluation. She has a 1.8 cm spiculated mass in the right lower lobe. She had mediastinal lymphadenopathy as well as a right adrenal mass. She underwent a craniotomy with tumor resection and is recovering in her room. She denies any blurred vision or headache. She continues to have right hemiparesis, but has improved and she is now able to grossly lift her arm. She denies any dysphagia. No chest pain. No shortness of breath. SOCIAL HISTORY: She has a 35 pack-year history of smoking, working here at [facility], from [place]. PAST MEDICAL HISTORY: 1. Hypertension. 2. Depression. PAST SURGICAL HISTORY: 1. Hysterectomy. 2. Colonoscopy with polypectomy. ALLERGIES: TO CODEINE AND KEFLEX. HOME MEDICATIONS: 1. Prilosec. 2. Verapamil. 3. Metoprolol. 4. Wellbutrin. 5. Sertraline. 6. Norvasc. FAMILY HISTORY: No history of lung cancer. SOCIAL HISTORY: Single, she is originally from [place] and working here at [facility] [employer]. 35 pack-year history of smoking. No alcohol or illicit drug use. REVIEW OF SYSTEMS: A 10-point review of systems is negative except for noted in HPI. PHYSICAL EXAMINATION: VITAL SIGNS: Temperature 97.9, pulse is 71, respiratory rate 16, BP is 151/69. GENERAL: A well-developed, well-nourished female, in no acute distress. HEENT: Normocephalic and atraumatic. She has a turban in place, covering her incision. NECK: Supple. CVS: Regular rate and rhythm. LUNGS: Clear. ABDOMEN: Obese, nontender. Bowel sounds are positive. EXTREMITIES: No clubbing or cyanosis. SKIN: No rash. HEMATOLOGIC: No petechiae or purpura. NEUROLOGIC: She has right hemiparesis. PERTINENT LABS AND X-RAYS: Current WBC 6.9, hemoglobin 11.9, hematocrit 37, platelet count is 189,000, 86% neutrophils, 10% lymphocytes. PT is 12.9, INR is 1.0, and PTT is 26.7. Sodium 138, potassium 3.6, chloride is 106, CO2 is 21, BUN is 11, creatinine 0.72, calcium 9.1, bilirubin 0.4, AST is 32, ALT is 31, alkaline phosphatase is 79, serum total protein is 7.0, albumin 3.9, globulin 3.1. COVID PCR negative. Radiology, per HPI. ASSESSMENT: 1. Lung mass with brain metastasis, likely lung primary. 2. Status post craniotomy for tumor resection. DISCUSSION: Case was discussed with Dr. Benavides. The patient has further brain mets that have yet to be treated. We are currently waiting on pathology, although this is likely a lung primary, we need immunohistochemical stains including PD-L1. The patient will be discussed in the Tumor Board as how to further proceed. She will obviously need further radiation to her brain, but also possibly chemoimmunotherapy. She was given our clinic information and we will follow along with her hospital course and have her follow up in the outpatient setting. Thank you for the consult. Job ID: [id number]
[2019-11-04] MEDS: HYDROcodone/Acetaminophen 5/325 mg Tablet PO PRN ×3 (01:04→22:55)
[2019-11-04] MEDS: cloNIDine 0.1 MG TAB PO PRN ×2 (01:04→16:18)
[2019-11-04] MEDS: Bupropion 150 MG XL TAB PO SCH (08:57)
[2019-11-04] MEDS: Metoprolol Tartrate 50 MG TAB PO SCH ×2 (08:57→22:55)
[2019-11-04] MEDS: Amlodipine 10 MG TAB PO SCH (08:57)
[2019-11-04] MEDS ORDERED: Dexamethasone 4 mg/ml Vial SLOW IVP SCH (09:00)
--- NOTE | 2019-11-04 09:38 | PRG ---
DATE OF SERVICE: 11/04/2019 SUBJECTIVE: The patient is now postoperative day #2, status post left-sided craniotomy for tumor resection. She was transitioned to the stroke unit from the ICU yesterday. Her Koch was removed, and she has had no difficulty with urination. She continues to tolerate a regular diet. Her pain is well controlled with p.o. medications. Her final pathology is pending. OBJECTIVE: On exam this morning, she is awake, alert, and oriented x3. She has improved strength in the right upper extremity and is able to lift the arm off the bed and give a light promotion writer. Her incision is clean, dry, and intact. ASSESSMENT AND PLAN: The patient continues to have improvement in the right upper extremity strength. We will continue to taper her Decadron. The patient's rehab screen has been done and she is ready for transition to inpatient rehab at any point in time. Job ID: [id number] MTDD
--- NOTE | 2019-11-04 10:32 | PRG ---
DATE OF SERVICE: SUBJECTIVE: This morning, she is awake, alert, responsive, status post craniotomy. Path is adenocarcinoma, metastatic, lung. OBJECTIVE: VITAL SIGNS: Temperature 98, pulse 70, respirations 16, sats 97% on room air, blood pressure 162/75. CHEST: No wheezing. No crackles. CARDIAC: Normal S1, S2. No gallops. ABDOMEN: No masses. IMPRESSION AND PLAN: Metastatic lung cancer, adenocarcinoma. She is being followed by Oncology. Pulmonary has nothing additional to follow up. Please call if she has any pulmonary issues. Job ID: [id number]
--- NOTE | 2019-11-04 13:17 | PDOC.HOSPP ---
- Subjective Encounter Date: 11/04/19 Encounter Time: 10:00 Subjective: feels better is working with pT able to lift her right UE, still weak no trouble swallowing - Objective Vital Signs & Weight: Vital Signs (12 hours) Temp Pulse Resp BP BP BP Pulse Ox 11/04/19 12:14 149/81 H 11/04/19 11:44 98 F 74 16 147/76 H 97 11/04/19 08:57 71 11/04/19 08:00 98 11/04/19 07:43 98.3 F 71 16 162/75 H 99 11/04/19 04:41 99.1 F 60 18 144/64 H 91 L Weight Admit Weight 196 lb 3.2 oz Weight 196 lb 3.2 oz Most Recent Monitor Data Heart Rate from ECG 86 NIBP 156/54 NIBP BP-Mean 88 Respiration from ECG 16 SpO2 97 I&O: 11/03/19 11/04/19 11/05/19 06:59 06:59 06:59 Intake Total 2046 1979 600 Output Total 1190 424 Balance 856 1555 600 Result Diagrams: 11/01/19 04:39 11/01/19 04:39 Hospitalist ROS - Medication Medications: Active Medications Generic Name Dose Route Start Last Admin Trade Name Freq PRN Reason Stop Dose Admin Acetaminophen 650 mg 10/31/19 14:24 11/02/19 20:21 Acetaminophen 325 Mg Tab PO 650 mg Q4H PRN Administration Headache/Fever/Mild Pain (1-3) Hydrocodone Bitart/Acetaminophen 1 tab 11/02/19 15:19 11/04/19 11:49 Hydrocodone/Acetaminophen 5/325 Mg Tablet PO 1 tab Q4H PRN Administration Mild-Moderate Pain (1-5) Amlodipine Besylate 10 mg 11/03/19 09:00 11/04/19 08:57 Amlodipine 10 Mg Tab PO 10 mg DAILY DERRICK Administration Bupropion HCl 300 mg 11/02/19 09:00 11/04/19 08:57 Bupropion 150 Mg Xl Tab PO 300 mg DAILY DERRICK Administration Clonidine 0.1 mg 11/02/19 16:55 11/04/19 01:04 Clonidine 0.1 Mg Tab PO 0.1 mg Q4H PRN Administration sbp>150 Metoprolol Tartrate 50 mg 11/02/19 21:00 11/04/19 08:57 Metoprolol Tartrate 50 Mg Tab PO 50 mg BID DERRICK Administration Pantoprazole Sodium 40 mg 11/02/19 21:00 11/04/19 08:57 Pantoprazole 40 Mg Tab PO 40 mg Q12HR DERRICK Administration Sertraline HCl 200 mg 11/01/19 21:00 11/03/19 20:29 Sertraline Hcl 100 Mg Tab PO 200 mg HS DERRICK Administration - Exam General Appearance: awake alert Eye: PERRL, anicteric sclera ENT: no oropharyngeal lesions, moist mucosa Neck: supple, no JVD Heart: RRR, no murmur Respiratory: no wheezes, no rales Gastrointestinal: soft, non-tender, non-distended, normal bowel sounds Extremities: no cyanosis, no edema Neurological: cranial nerve grossly intact, hemiplegia Psychiatric: normal affect, A&O x 3 Hosp A/P (1) adenocarcinoma lung with metastases Status: Acute (2) Left frontal lobe mass Code(s): G93.89 - OTHER SPECIFIED DISORDERS OF BRAIN Status: Acute (3) HTN (hypertension) Code(s): I10 - ESSENTIAL (PRIMARY) HYPERTENSION Status: Chronic Qualifiers: Hypertension type: essential hypertension Qualified Code(s): I10 - Essential (primary) hypertension (4) Obesity (BMI 30.0-34.9) Code(s): E66.9 - OBESITY, UNSPECIFIED Status: Chronic (5) Depression Code(s): F32.9 - MAJOR DEPRESSIVE DISORDER, SINGLE EPISODE, UNSPECIFIED Status: Chronic Qualifiers: Depression Type: major depressive disorder - Plan s/p resection of large left frontal lobe mass 11/01 likely right lung primary adenocarcinoma with right adrenal, brain and mediastinal mets right UE strength was 0/5 post op 2-3/5, right Lower extre strength is 3/5, 7th nr palsy is resolving continue norvasc, lisinopril with hctz, welbutrin, sertraline, protonix, dexamethasone, lopressor hemostable PT/OT and rehab eval
[2019-11-04] MEDS: Dexamethasone 4 MG TAB PO SCH ×2 (16:19→22:56)
[2019-11-05] MEDS: cloNIDine 0.1 MG TAB PO PRN (00:28)
[2019-11-05] MEDS: Amlodipine 10 MG TAB PO SCH (08:45)
[2019-11-05] MEDS: Dexamethasone 4 MG TAB PO SCH ×2 (08:46→21:02)
[2019-11-05] MEDS: Bupropion 150 MG XL TAB PO SCH (08:47)
[2019-11-05] MEDS: Metoprolol Tartrate 50 MG TAB PO SCH ×2 (08:47→21:02)
[2019-11-05] MEDS ORDERED: Lisinopril/Hydrochlorothiazide 20 mg/12.5 mg Tablet PO SCH (09:00)
--- NOTE | 2019-11-05 09:49 | PRG ---
DATE OF SERVICE: 11/05/2019 The patient remains neurologically stable on the stroke floor. She continues to work with PT and has had improved functionality in the right upper extremity. She has been visited with Radiation Oncology and Oncology Service, and they will await final pathology to determine further oncologic plan. Pt still amenable to inpatient rehab. On exam, this morning, she is awake, alert, and oriented x3. Her vital signs are stable. She has been afebrile. She has still some weakness in the right upper extremity, 3/5, but has 5/5 strength in the remainder. The patient is doing quite well. We will continue to taper her Decadron. We will continue to work towards placement in inpatient rehabilitation and she is ready at any point in time. Job ID: [id number] [facility]
[2019-11-05] MEDS: HYDROcodone/Acetaminophen 5/325 mg Tablet PO PRN (19:50)
[2019-11-06] MEDS: HYDROcodone/Acetaminophen 5/325 mg Tablet PO PRN (00:17)
[2019-11-06] MEDS ORDERED: Hydrochlorothiazide 25 MG TAB PO SCH (09:00)
[2019-11-06] MEDS ORDERED: Lisinopril 20 MG TAB PO SCH (09:00)
[2019-11-06] MEDS: Metoprolol Tartrate 50 MG TAB PO SCH (09:04)
[2019-11-06] MEDS: Bupropion 150 MG XL TAB PO SCH (09:04)
[2019-11-06] MEDS: Amlodipine 10 MG TAB PO SCH (09:05)
[2019-11-06] MEDS: Dexamethasone 4 MG TAB PO SCH (09:05)
--- NOTE | 2019-11-06 09:21 | PRG ---
DATE OF SERVICE: 11/06/2019 SUBJECTIVE: The patient is now postoperative day #4, status post left-sided craniotomy with left frontal tumor resection. This has appeared consistent with metastatic disease, likely primary lung cancer, but we are awaiting final pathology. She has done quite well on the stroke floor. She has had minimal pain. She is tolerating a p.o. diet. She is voiding appropriately. She is ambulating well with a walker and working with Physical Therapy. She has had significant improvement in her right upper extremity strength as well as improvement in her word finding. She has been accepted to rehab. We are waiting on insurance authorization. OBJECTIVE: On exam this morning, her vital signs are stable. She is afebrile. She is awake, alert, oriented x3. Pupils are equal and reactive. She has some mild swelling along the left side of the face. Incision is clean, dry, and intact. She has some weakness that remains in the right upper extremity throughout 35. PLAN: We will continue to have her work with PT, OT here inpatient. Her Decadron is tapering. She is ready for rehab at any point in time. FU with NS in 2 weeks. I will remove her cristina at her post op visit in the office. Job ID: [id number] MTDD
[2019-11-06 11:19] VITALS: BP 152/67; TEMP 97.5
--- NOTE | 2019-11-06 12:00 | PDOC.HOSPP ---
- Subjective Encounter Date: 11/05/19 Encounter Time: 11:00 Subjective: is seen ambulating with PT and walker no sob, is moving right extremities but lower better - Objective Vital Signs & Weight: Vital Signs (12 hours) Temp Pulse Resp BP BP BP Pulse Ox 11/06/19 11:19 97.5 F L 73 16 152/67 H 98 11/06/19 09:05 74 168/75 H 11/06/19 09:04 168/75 H 11/06/19 07:43 98.1 F 60 18 146/58 H 97 11/06/19 03:59 97.9 F 64 18 147/73 H 99 Weight Admit Weight 196 lb 3.2 oz Weight 196 lb 3.2 oz Most Recent Monitor Data Heart Rate from ECG 86 NIBP 156/54 NIBP BP-Mean 88 Respiration from ECG 16 SpO2 97 I&O: 11/05/19 11/06/19 11/07/19 06:59 06:59 06:59 Intake Total 1800 840 Balance 1800 840 Result Diagrams: 11/01/19 04:39 11/01/19 04:39 Additional Labs: Accuchecks 11/03/19 20:48 POC Glucose 117 H Hospitalist ROS - Medication Medications: Active Medications Generic Name Dose Route Start Last Admin Trade Name Freq PRN Reason Stop Dose Admin Acetaminophen 650 mg 10/31/19 14:24 11/02/19 20:21 Acetaminophen 325 Mg Tab PO 650 mg Q4H PRN Administration Headache/Fever/Mild Pain (1-3) Hydrocodone Bitart/Acetaminophen 1 tab 11/02/19 15:19 11/06/19 00:17 Hydrocodone/Acetaminophen 5/325 Mg Tablet PO 1 tab Q4H PRN Administration Mild-Moderate Pain (1-5) Amlodipine Besylate 10 mg 11/03/19 09:00 11/06/19 09:05 Amlodipine 10 Mg Tab PO 10 mg DAILY DERRICK Administration Bupropion HCl 300 mg 11/02/19 09:00 11/06/19 09:04 Bupropion 150 Mg Xl Tab PO 300 mg DAILY DERRICK Administration Clonidine 0.1 mg 11/02/19 16:55 11/05/19 00:28 Clonidine 0.1 Mg Tab PO 0.1 mg Q4H PRN Administration sbp>150 Dexamethasone 2 mg 11/05/19 09:00 11/06/19 09:05 Dexamethasone 4 Mg Tab PO 11/06/19 23:59 2 mg BID DERRICK Administration Hydrochlorothiazide 25 mg 11/06/19 09:00 11/06/19 09:05 Hydrochlorothiazide 25 Mg Tab PO 25 mg DAILY DERRICK Administration Lisinopril 20 mg 11/06/19 09:00 11/06/19 09:04 Lisinopril 20 Mg Tab PO 20 mg DAILY DERRICK Administration Metoprolol Tartrate 50 mg 11/02/19 21:00 11/06/19 09:04 Metoprolol Tartrate 50 Mg Tab PO 50 mg BID DERRICK Administration Pantoprazole Sodium 40 mg 11/02/19 21:00 11/06/19 09:04 Pantoprazole 40 Mg Tab PO 40 mg Q12HR DERRICK Administration Sertraline HCl 200 mg 11/01/19 21:00 11/05/19 21:02 Sertraline Hcl 100 Mg Tab PO 200 mg HS DERRICK Administration - Exam General Appearance: awake alert Eye: PERRL, anicteric sclera ENT: no oropharyngeal lesions, moist mucosa Neck: supple, no JVD Heart: RRR, no murmur Respiratory: no wheezes, no rales Gastrointestinal: soft, non-tender, non-distended, normal bowel sounds Extremities: no cyanosis, no edema Neurological: hemiplegia Psychiatric: normal affect, A&O x 3 Hosp A/P (1) adenocarcinoma lung with metastases Status: Acute (2) Left frontal lobe mass Code(s): G93.89 - OTHER SPECIFIED DISORDERS OF BRAIN Status: Acute (3) HTN (hypertension) Code(s): I10 - ESSENTIAL (PRIMARY) HYPERTENSION Status: Chronic Qualifiers: Hypertension type: essential hypertension Qualified Code(s): I10 - Essential (primary) hypertension (4) Obesity (BMI 30.0-34.9) Code(s): E66.9 - OBESITY, UNSPECIFIED Status: Chronic (5) Depression Code(s): F32.9 - MAJOR DEPRESSIVE DISORDER, SINGLE EPISODE, UNSPECIFIED Status: Chronic Qualifiers: Depression Type: major depressive disorder - Plan s/p resection of large left frontal lobe mass 11/01 likely right lung primary adenocarcinoma with right adrenal, brain and mediastinal mets right UE strength was 0/5 post op 3/5, right Lower extre strength is 3/5, 7th nr palsy is resolving continue norvasc, lisinopril, hctz, welbutrin, sertraline, protonix, dexamethasone, lopressor hemostable dc pt to rehab today
--- NOTE | 2019-11-06 15:46 | DIS ---
DATE OF ADMISSION: 10/31/2019 DATE OF DISCHARGE: 11/06/2019 DISCHARGE DISPOSITION: Inpatient rehab. PRIMARY DISCHARGE DIAGNOSES: 1. Metastatic adenocarcinoma of lung with metastases to left frontal lobe, mediastinum, right adrenal gland. 2. Status post left frontal lobe mass resection. SECONDARY DISCHARGE DIAGNOSES: Hypertension, obesity, and depression. PROCEDURES DONE DURING HOSPITALIZATION: MRI brain with and without IV contrast done showed extensive brain metastasis with the largest mass in the left frontal lobe. There are numerous other smaller enhancing metastases throughout the brain including the posterior fossa. No acute hemorrhage was seen. CT chest, abdomen, and pelvis with contrast done showed right lower lobe spiculated mass measuring 1.8 cm, suspicious for primary malignant process. There were metastatic mediastinal adenopathy as well as right adrenal mass. Echo with 2D Doppler showed EF of 50% to 55%. There was diastolic dysfunction. Moderate aortic regurgitation was seen. Histopathology of the left frontal lobe metastatic mass revealed metastatic carcinoma consistent with lung primary. Histochemical evidence suggestive of metastatic adenocarcinoma consistent with lung primary. [employer] for lung panel has been sent. On 11/02/2019, the patient had stereotactic intracranial navigation, left craniotomy for left frontal lobe tumor mass resection. H and H 11 and 37, platelet count 189, MCV 107. PT/INR and PTT within normal limits. BUN 11, creatinine 0.7. Liver enzymes within normal limits. Albumin is 3.9. COVID-19 PCR was not detected on 10/31/2019. DISCHARGE PLAN: The patient to follow up with Dr. Armstrong in [address] Cedric Bliss for Radiation Oncology in 10 days. Rosa Franklin, oncology nurse practitioner, in [address] Tracy, her primary care physician, in 1 week. DISCHARGE MEDICATIONS: 1. Bupropion extended release 300 mg p.o. daily. 2. Metoprolol 50 mg twice daily. 3. Omeprazole 20 mg daily. 4. Pravastatin 80 mg p.o. q.h.s. 5. Sertraline 200 mg p.o. q.h.s. 6. Decadron tapering dose starting at 2 mg twice daily for a day, then daily for 3 days, then discontinue. 7. Hydrochlorothiazide 25 mg daily. 8. Amlodipine 10 mg daily. 9. Senokot-S 2 tabs p.o. twice daily. 10. Lisinopril 20 mg daily. ALLERGIES: KEFLEX, CODEINE, OXYCODONE, AND PENICILLIN. BRIEF COURSE DURING HOSPITALIZATION: The patient initially came to ER with complaints of right-sided weakness. On physical exam, the patient had right hemiparesis with 7th nerve palsy as well. Initial workup in the ER revealed a large cystic mass in the left frontal lobe. The patient has had this mass confirmed on the MRI with contrast and also had a CT of the chest, abdomen, and pelvis with contrast. She had a spiculated mass in the right lung with adrenal mets. Her right upper extremity strength was 0/5 and her right lower extremity strength was 3/5 prior to surgery. Post left frontal lobe mass resection, the patient has had dramatic recovery of her 7th cranial nerve palsy, and right upper extremity strength is 3/5 at the time of discharge. She is being discharged to inpatient rehab for further recuperation. Likely, the patient has lung primary with metastasis. Her histopathology of the left frontal lobe mass revealed adenocarcinoma of lung. [employer] study has been sent. She has had initial consultation with Dr. Cedric Bliss for Radiation Oncology and Rosa Franklin for Oncology. The patient will follow up with both specialists once she recovers from her craniectomy procedure. Prior to discharge, she is ambulating with a rolling walker. She also needs to follow up with Dr. Armstrong as advised. Please see a [id number] documentation for the day of discharge on [employer]. A total of 35 minutes was spent on discharge plan. Job ID: [id number] MTDD
[2019-11-07] MEDS ORDERED: Dexamethasone 4 MG TAB PO SCH (09:00)
== END 2019-11-06 13:45 | DRG 25 ==
LOC: ERS 11:27 → 2SE 13:03 → CCU 11-02 11:50 → 2SE 11-03 11:40
PROVIDERS: ADMIT Internal Medicine; ATTEND Internal Medicine
PROC: 00B00ZZ Excision of Brain, Open Approach (ICD-10-PCS; principal; 2019-11-02)
PROC: 00N00ZZ Release Brain, Open Approach (ICD-10-PCS; 2019-11-02)
DX: C79.31 Secondary malignant neoplasm of brain (principal); G93.6 Cerebral edema; G81.91 Hemiplegia, unspecified affecting right dominant side; C34.90 Malignant neoplasm of unspecified part of unspecified bronchus or lung; C78.1 Secondary malignant neoplasm of mediastinum; C79.71 Secondary malignant neoplasm of right adrenal gland; R29.708 NIHSS score 8; R40.2362 Coma scale, best motor response, obeys commands, at arrival to emergency department; R40.2142 Coma scale, eyes open, spontaneous, at arrival to emergency department; R40.2252 Coma scale, best verbal response, oriented, at arrival to emergency department; I10 Essential (primary) hypertension; K21.9 Gastro-esophageal reflux disease without esophagitis; E66.9 Obesity, unspecified; F32.9 Major depressive disorder, single episode, unspecified; Z90.710 Acquired absence of both cervix and uterus; Z88.6 Allergy status to analgesic agent; Z79.899 Other long term (current) drug therapy; Z88.0 Allergy status to penicillin; Z88.1 Allergy status to other antibiotic agents; Z68.33 Body mass index [BMI] 33.0-33.9, adult; E78.00 Pure hypercholesterolemia, unspecified; Z20.828 Contact with and (suspected) exposure to other viral communicable diseases
CPT/HCPCS: 36415; 36416; 70450; 70553; 71260; 74177; 80048; 80053; 83036; 84484; 85025; 85610; 85730; 87635; 88307; 88341; 88342; 93005; 93010; 93306; A9579; C1713; C9113; J1100; J1650; J1885; J1956; J2405; J2704; J3010; J3490; J8540; Q9967; U0003